=== PATIENT | female | born 1945 ===

== ENCOUNTER 2022-05-30 07:22 | Outpatient (CLI) | payer OTHER | END 2022-05-30 07:40 | disposition home or self-care (01) | LOC: RAD 07:22 | PROVIDERS: ATTEND Internal Medicine Cardiovascular Disease | DX: J44.9 Chronic obstructive pulmonary disease, unspecified (principal); I10 Essential (primary) hypertension; M12.9 Arthropathy, unspecified; E03.9 Hypothyroidism, unspecified; R10.9 Unspecified abdominal pain; N80.9 Endometriosis, unspecified; N63.11 Unspecified lump in the right breast, upper outer quadrant ==

== ENCOUNTER 2022-06-09 12:36 | Outpatient (CLI) | payer OTHER | END 2022-06-09 12:38 | disposition home or self-care (01) | LOC: NUCLEAR 12:36 | PROVIDERS: ATTEND Internal Medicine Cardiovascular Disease | DX: M19.90 Unspecified osteoarthritis, unspecified site (principal) ==

== ENCOUNTER → 2022-08-07 | Outpatient (CLI) | payer OTHER | END | disposition home or self-care (01) | LOC: SONOGRAMA 08:10 | PROVIDERS: ATTEND Pathology Anatomic Pathology & Clinical Pathology | DX: D34 Benign neoplasm of thyroid gland (principal); E04.9 Nontoxic goiter, unspecified; E04.2 Nontoxic multinodular goiter ==